=== PATIENT | male | born 1995 | race Caucasian/White ===

== ENCOUNTER 2020-02-12 06:03 | Emergency (ER) | payer MEDICAID, SELFPAY ==
[2020-02-12] VITALS (141 sets, daily range): BP systolic 101–139; BP diastolic 47–91; PULSE 46–114; RESP 10–18; TEMP 36.6; O2SAT 91–100
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
[2020-02-12] MEDS: Naloxone 0.4 MG/ML VIAL 0.8 MG IVP (06:42)
[2020-02-12] MEDS: Lactated Ringers 1,000 ML 1000 ML IV ×2 (06:59→08:07)
[2020-02-12 07:21] LABS: *AMPHETAMINES SCREEN URINE POSITIVE (Negative); *BARBITURATES SCREEN URINE Negative (Negative); *BENZODIAZEPINES SCREEN URINE POSITIVE (Negative); Cannabinoids THC POSITIVE (Negative); Cocaine Screen,Urine POSITIVE (Negative); METHADONE URINE SCREEN POSITIVE (Negative); OPIATES URINE SCREEN Negative (Negative)
[2020-02-12 07:23] LABS: Tricyclic Antidepressants Negative (Negative)
[2020-02-12 07:47] LABS: Abs Immature Grans 0.02 k/cumm (0.0-0.09); Absolute Basophil Count 0.03 k/cumm (0.0-0.2); Absolute Eosinophil Count 0.05 k/cumm (0.0-0.7); Absolute Lymphocyte Count 1.83 k/cumm (1.2-3.4); Absolute Monocyte Count 1.68 k/cumm (0.11-0.7); Absolute Neutrophil Count 9.74 k/cumm (1.2-6.7); Basophils % 0.2; Eosinophils % 0.4; HCT 41.8 % (40.0-50.0); HGB 14.2 g/dL (13.5-17.5); Immature Grans % 0.1 %; Lymphocytes % 13.7; Mean Corpuscular Hemoglobin 31.4 pg (27.0-33.0); Mean Corpuscular Volume 92.5 fL (80-95); Mean Platelet Volume 9.6 fL (8.0-11.0); Monocytes % 12.6; Platelet Count 208 x1000/uL (130-400); RBC 4.52 m/cumm (4.50-6.00); RBC Distribution Width 13.1 % (11.8-14.1); White Blood Cell Count 13.34 k/cumm (4.4-10.8)
[2020-02-12 07:59] LABS: Diff Comment Agrees w/ Instrument; RBC Morphology Normal
[2020-02-12 08:07] LABS: ALT 20 U/L (16-63); AST 27 U/L (15-37); Albumin 3.8 g/dL (3.4-5.0); Alkaline Phosphatase 91 U/L (46-116); Anion Gap 10.9 mmol/L (3-11); BUN 19 mg/dL (7-18); Bilirubin, Total 0.8 mg/dL (0.2-1.0); CO2 27.1 mmol/L (21.0-32.0); CREATININE 1.06 mg/dL (0.70-1.30); Calcium 8.8 mg/dL (8.5-10.1); Chloride 103 mmol/L (98-107); Glucose 86 mg/dL (74-106); Potassium 3.8 mmol/L (3.5-5.1); Sodium 141 mmol/L (136-145); Total Protein 7.4 g/dL (6.4-8.2)
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
[2020-02-12 08:16] LABS: ETHANOL BLOOD < 3.0 mg/dL (<3)
[2020-02-12 08:20] LABS: Salicylate 3.4 mg/dL (2.8-20.0)
[2020-02-12 08:29] LABS: Acetaminophen < 2 ug/mL (10-30)
--- NOTE | 2020-02-12 08:30 | DI.CT_ITS ---
EXAM: CT HEAD WO CLINICAL HISTORY: altered mental status, s/p drug use/fall. TECHNIQUE: Imaging Protocol: Axial computed tomography images with coronal and sagittal reformatted images were created and reviewed COMPARISON: No exams were available for comparison FINDINGS: There is patient motion artifact. Ventricles and Extra axial spaces: Normal in size and morphology for the patient's age. Hemorrhage: None. Cerebral parenchyma: Normal. Midline shift: None. Brainstem/Cerebellum: Normal. Calvarium: Normal. Visualized Paranasal sinuses/Mastoids: This retention cyst or polyp in the left maxillary sinus. Muc osal thickening in the ethmoid air cells and right maxillary sinus. The remaining visualized paranas al sinuses and mastoid air cells are clear. Soft Tissues: Unremarkable. IMPRESSION: No acute intracranial process. RADIATION DOSE DELIVERED: Total DLP DATA REPOSITORY: All CT scans at this facility are submitted to the National Radiology Data Registry (NRDR) Dose Index Registry (DIR) with the [employer] (ACR). RADIATION OPTIMIZATION: All CT scans at this facility use at least one of these dose optimization te chniques: automated exposure control; mA and/or kV adjustment per patient size (includes targeted exa ms where dose is matched to clinical indication); or iterative reconstruction.
--- NOTE | 2020-02-12 08:38 | DI.RAD_ITS ---
EXAM: XR CHEST 1V IN DI DEPT CLINICAL HISTORY: altered mental status, s/p drug use TECHNIQUE: 2D digital imaging was performed. COMPARISON: No exams were available for comparison FINDINGS: MEDIASTINUM: Normal. HEART: Normal. PULMONARY VASCULATURE: Normal. LUNGS: No focal consolidating infiltrates. PLEURAL SPACE: No pleural effusion or pneumothorax. BONE:Within normal limits for the patient's age. OTHER FINDINGS:EKG wires are seen. IMPRESSION: No acute pulmonary findings. DATA REPOSITORY: RADIATION DOSE DELIVERED:
--- NOTE | 2020-02-12 09:00 | RT.EKG_ITS ---
APPROVED REPORT Exam: Resting ECG Patient Location: E HR:58 bpm ECG Measurements Heart Rate 58 AXIS [place] 155 P 57 QRSd 113 QRS 85 QT 459 T 65 QTc 451 <Conclusion> Slow sinus arrhythmia...V-rate 50- 67, mean< 60 ST elev, probable normal early repol pattern...ST elevation, age<55. No acute change from previous EKG 2012.
--- NOTE | 2020-02-12 09:06 | DI.VRAD_ITS ---
PROCEDURE INFORMATION: Exam: CT Head Without Contrast Exam date and time: 02/12/2020 8:42 AM Age: 24 years old Clinical indication: Other: Altered mental status, S/P drug use/fall TECHNIQUE: Imaging protocol: Computed tomography of the head without contrast. COMPARISON: No relevant prior studies available. FINDINGS: Brain: Normal. No hemorrhage. Unremarkable white matter. No mass effect. Ventricles: Normal. No ventriculomegaly. Bones/joints: Unremarkable. No acute fracture. Sinuses: Polyp or retention cyst in the left maxillary sinus. Mucosal thickening in the ethmoid sinuses and right maxillary sinus. Mastoid air cells: Visualized mastoid air cells are well aerated. Soft tissues: Unremarkable. IMPRESSION: No acute intracranial hemorrhage Dictated and Authenticated by: Satya Cat MD. Ordering:GLADIS Troncoso MD
--- NOTE | 2020-02-12 09:56 | DI.VRAD_ITS ---
PROCEDURE INFORMATION: Exam: XR Chest, 1 View Exam date and time: 02/12/2020 9:00 AM Age: 24 years old Clinical indication: Other: AMS, S/P drug use TECHNIQUE: Imaging protocol: XR of the chest Views: 1 view. COMPARISON: No relevant prior studies available. FINDINGS: Tubes, catheters and devices: Overlying EKG wires Lungs: Mild Opacities in the right base may represent atelectasis or pneumonia. Pleural space: Unremarkable. No pleural effusion. No pneumothorax. Heart/Mediastinum: Unremarkable. No cardiomegaly. Bones/joints: Unremarkable. IMPRESSION: Mild Opacities in the right base may represent atelectasis or pneumonia. Dictated and Authenticated by: Satya Cat MD. Ordering:GLADIS Troncoso MD
[2020-02-12] MEDS: Normal Saline 1,000 ML 125 ML IV (10:00)
[2020-02-12] MEDS: Naloxone 0.4 MG/ML VIAL ×2 (14:35→14:40)
--- NOTE | 2020-02-12 16:00 | PDOC.MHCN ---
Date of service: 02/12/20 Time of Service: 16:01 Mental Health Crisis Note Presenting Issue How did you arrive at the ED and why did you come: Client arrived at the ED by ambulance. Client had been in police custody and they were concerned about his behavior and possible overdose. Precipitating Factors Client had a difficult time staying awake during the assessment and often times had to be shaken to wake him up. Client reported that he is very unhappy but does not feel that he would be a harm to himself if he went home. Client reported that all he wanted to do was go home and be with his girl and for all of this to go away. He did report that if he did not go home, and went to penitentiary then he would hang himself. Client reported no HI. Disposition BEHAVIOR: Client was laying in the hospital bed and had a difficult time keeping his head up to speak with this writer editor. Client was cooperative when speaking with this writer editor. EYE CONTACT: Client made minimal eye contact, as he could barely keep his eyes open to speak with this writer editor. MOOD: Client appeared depressed and worried. AFFECT: Clients affect was normal. APPETITE: Client reported that his appetite was crap SLEEP(trouble falling/staying asleep: Client reported that before today, he had been awake for 3 days straight. Plan Client will be released into police custody and will be put on suicide watch. Signature Clinician's Name/Title: Anisa Buckley [facility] Emergency Clinician
--- NOTE | 2020-02-12 16:30 | DI.RAD_ITS ---
EXAM: XR HIP RT COMPLETE AP PELVIS INDICATION: R hip pain, r/o acute fracture. COMPARISON: No exams were available for comparison TECHNIQUE: 2D digital imaging was performed. FINDINGS: No fracture or dislocation is seen. The SI joints and pubic symphysis appear intact. IMPRESSION: Negative pelvis and right hip DATA REPOSITORY: RADIATION DOSE DELIVERED:
--- NOTE | 2020-02-12 17:28 | DI.VRAD_ITS ---
PROCEDURE INFORMATION: Exam: XR Right Hip with Pelvis when Performed Exam date and time: 02/12/2020 4:56 PM Age: 24 years old Clinical indication: Other: RT hip pain, R/O acute FX TECHNIQUE: Imaging protocol: XR Right hip with pelvis when performed. Views: 2 or 3 views. COMPARISON: No relevant prior studies available. FINDINGS: Bones/joints: There is no evidence of acute fracture.There is no evidence of malalignment or dislocation. Soft tissues: Unremarkable. IMPRESSION: There is no evidence of acute fracture.There is no evidence of malalignment or dislocation. Dictated and Authenticated by: Satya Cat MD. Ordering:GLADIS Troncoso MD
--- NOTE | 2020-02-12 18:03 | NUR.NOTE ---
ate a tuna sandwich, drank 3-4 glasses of water.Nursing Note:
== END 2020-02-12 17:55 | disposition home or self-care (01) ==
PROVIDERS: Emergency Medicine; Emergency Provider Physician Assistant
DX: R41.82 Altered mental status, unspecified (principal); F11.10 Opioid abuse, uncomplicated; F13.20 Sedative, hypnotic or anxiolytic dependence, uncomplicated; F14.10 Cocaine abuse, uncomplicated; F15.10 Other stimulant abuse, uncomplicated; R45.851 Suicidal ideations; S70.01XA Contusion of right hip, initial encounter; X58.XXXA Exposure to other specified factors, initial encounter
CPT/HCPCS: 36415; 80053; 80307; 93005; 96361; 96374; 99285; 70450; 71045; 73502; 80320; 80329; 85025; 93010; J2310

== ENCOUNTER 2023-02-14 09:46 | Observation (INO) | payer MEDICAID, SELFPAY ==
[2023-02-14] VITALS (37 sets, daily range): BP systolic 108–133; BP diastolic 36–103; PULSE 51–97; RESP 8–23; TEMP 36.2–36.6; O2SAT 95–100
--- NOTE | 2023-02-14 10:00 | DI.RAD_ITS ---
Exam(s) XR CHEST 2V PA LATERAL EXAM: XR CHEST 2V PA LATERAL CLINICAL HISTORY: short of breath TECHNIQUE: 2D digital imaging was performed of the chest. Four images were obtained. PA and latera l views were obtained. COMPARISON: CR,XR XR CHEST 1V IN DI DEPT from 02/12/2020 FINDINGS: MEDIASTINUM: Normal. HEART: Normal. PULMONARY VASCULATURE: Normal. LUNGS: The lungs are hyperinflated. No focal infiltrates. PLEURAL SPACE: No pleural effusion or pneumothorax. BONE:Within normal limits for the patient's age. OTHER FINDINGS:Normal. IMPRESSION: Hyperinflation of the lungs. No focal infiltrates. DATA REPOSITORY: RADIATION DOSE DELIVERED:
--- NOTE | 2023-02-14 10:00 | RT.EKG_ITS ---
APPROVED REPORT Exam: Resting ECG Reason for Exam: short of breath Patient Location: E HR:55 bpm ECG Measurements Heart Rate 55 AXIS [place] 103 P 33 QRSd 112 QRS 83 QT 451 T 85 QTc 433 Conclusion Sinus bradycardia...rate< [address] intervals. No [address] segment or T wave abnormalities to suggest occluisve ID
--- NOTE | 2023-02-14 10:13 | ED.GENADUL_ITS ---
Discharge Plan Disposition Patient Disposition: Admit to [facility] Discharge Details Chief Complaint: Dizzy/Sync Clinical Impression: Vomiting, Acidosis Primary Care Provider: Unknown,Unknown ED Provider: Aria Nava Home Meds and New Rx's Prescriptions: No Action sertraline [Zoloft] 100 mg Tablet 100 mg PO DAILY Patient Comments: no longer taking hydroxyzine HCl 50 mg Tablet 50 mg PO PRN Patient Comments: no longer taking gabapentin 300 mg Capsule 900 mg PO DAILY sertraline 50 mg Tablet 50 mg PO DAILY buprenorphine-naloxone [Suboxone] 12-3 mg Film 8 film sublingual 2XD citalopram 40 mg tablet 40 mg PO 1XD Medical Decision Making 27yo M with history of substance use disorder, depression, presenting for malaise and vomiting with associated diarrhea. Generally unwell for several days, today with vomiting. No fevers or abdominal pain. Vital signs reassuring on arrival, physical exam with no abdominal tenderness, does have dry mucous membranes. Not overtly septic. Denies other infectious symptoms aside from vomiting. No toxic ingestions. Describes intermittent rapid shallow breathing with numbness and tingling in his hands and feet when his symptoms are the worst, consistent with anxiety/hyperventilation/hypocarbia. Given 1L IVFB and IV zofran. EKG sinus bradycardia with rate in 50's, appropriate intervals, no ST segment or T wave abnormalities to suggest occlusive [place], no sequela of electrolyte abnormalities. Labs ordered and reviewed, CBC reassuring with no leukocytosis or anemia, CMP with mild acidosis with bicarb of 17.6 and gap of 22.4, borderline low blood glucose at 57. Metabolic acidosis in the setting of diarrhea. VBG with ph 7.35, bicarb 18, pC02 32 (likely respiratory compensation but again did describe episodes of intermittent hyperventilation as well). CXR independently reviewed; no pneumonia, agree with radiology read below. On reassessment he reports feeling improved, will to try PO fluids. Repeat VBG ordered as well as additional IVFB. VBG after completion of 1st fluid bolus worsening, ph 7.19 (bicarb essentially unchanged at 17) with CO2 of 43. Patient appears more relaxed on exam, again reports feeling better, able to take some minimal fluids without further vomiting. Does report that he spoke with his roommate and learned that their carbon monoxide detector had recently been removed; CO level checked here and is 2.0, not cause of patient's symptoms today. Suspect likely gastroenteritis though degree of acidosis is unexpected. Despite clinical improvement, acidosis remains concerning and he requires continued IV hydration and repeat bloodwork. Accepted to medicine service and awaiting transfer to the floor. Imaging Data Radiologic Study: Imaging: X-Ray Radiologist's impression: MPRESSION: Hyperinflation of the lungs.? No focal infiltrates.? Lab Data Labs: Laboratory Tests Range/Units 02/14/23 02/14/23 02/14/23 11:00 11:00 11:00 WBC (4.4-10.8) 10^3/uL 6.21 RBC (4.36-5.78) 10^6/uL 4.69 Hgb (13.5-17.5) g/dL 14.7 Hct (40.0-50.0) % 43.2 MCV (80-95) fL 92 MCH (27.0-33.0) pg 31.3 MCHC (32.0-36.0) % 34.0 RDW (11.8-14.1) % 12.7 Plt Count (130-400) 10^3/uL 233 MPV (8.0-11.0) fL 10.1 Immature Gran % 0.3 Neutrophils % 73.4 Lymphocytes % 21.1 Monocytes % 4.3 Eosinophils % 0.3 Basophils % 0.6 Nucleated RBC % (0.0-0.3) % 0.0 Absolute Neutrophils (1.2-6.7) 10^3/uL 4.55 Absolute Lymphocytes (1.2-3.4) 10^3/uL 1.31 Absolute Monocytes (0.1-0.8) 10^3/uL 0.27 Absolute Eosinophils (0.0-0.7) 10^3/uL 0.02 Absolute Basophils (0.0-0.2) 10^3/uL 0.04 VBG pH (7.31-7.41) VBG pCO2 (41-51) mmHg VBG pO2 mmHg VBG HCO3 (23-28) mmol/L VBG Total CO2 (24-29) mmol/L VBG O2 Saturation % VBG Base Excess (-2-3) mmol/L VBG Lactate (0.6-1.4) mmol/L 1.7 H Sodium (136-145) mmol/L 136 Potassium (3.5-5.1) mmol/L 4.0 Chloride (98-107) mmol/L 96 L Carbon Dioxide (21.0-32.0) mmol/L 17.6 L Anion Gap (3-11) mmol/L 22.4 H BUN (7-18) mg/dL 22 H Creatinine (0.70-1.30) mg/dL 1.2 Est GFR (CKD-EPI 2020) (mL/min/1.73m2) 85.00 Glucose (74-106) mg/dL 57 L Calcium (8.5-10.1) mg/dL 9.5 Magnesium (1.8-2.4) mg/dL 1.7 L Total Bilirubin (0.2-1.0) mg/dL 0.9 AST (15-37) U/L 31 ALT (16-63) U/L 20 Alkaline Phosphatase (46-116) U/L 66 Troponin I (<or=60) ng/L < 50 Total Protein (6.4-8.2) g/dL 8.0 Albumin (3.4-5.0) g/dL 4.6 Range/Units 02/14/23 11:00 WBC (4.4-10.8) 10^3/uL RBC (4.36-5.78) 10^6/uL Hgb (13.5-17.5) g/dL Hct (40.0-50.0) % MCV (80-95) fL MCH (27.0-33.0) pg MCHC (32.0-36.0) % RDW (11.8-14.1) % Plt Count (130-400) 10^3/uL MPV (8.0-11.0) fL Immature Gran % Neutrophils % Lymphocytes % Monocytes % Eosinophils % Basophils % Nucleated RBC % (0.0-0.3) % Absolute Neutrophils (1.2-6.7) 10^3/uL Absolute Lymphocytes (1.2-3.4) 10^3/uL Absolute Monocytes (0.1-0.8) 10^3/uL Absolute Eosinophils (0.0-0.7) 10^3/uL Absolute Basophils (0.0-0.2) 10^3/uL VBG pH (7.31-7.41) 7.35 VBG pCO2 (41-51) mmHg 32 L VBG pO2 mmHg 26 VBG HCO3 (23-28) mmol/L 18 L VBG Total CO2 (24-29) mmol/L 16 L VBG O2 Saturation % 51 VBG Base Excess (-2-3) mmol/L -8 L VBG Lactate (0.6-1.4) mmol/L Sodium (136-145) mmol/L Potassium (3.5-5.1) mmol/L Chloride (98-107) mmol/L Carbon Dioxide (21.0-32.0) mmol/L Anion Gap (3-11) mmol/L BUN (7-18) mg/dL Creatinine (0.70-1.30) mg/dL Est GFR (CKD-EPI 2020) (mL/min/1.73m2) Glucose (74-106) mg/dL Calcium (8.5-10.1) mg/dL Magnesium (1.8-2.4) mg/dL Total Bilirubin (0.2-1.0) mg/dL AST (15-37) U/L ALT (16-63) U/L Alkaline Phosphatase (46-116) U/L Troponin I (<or=60) ng/L Total Protein (6.4-8.2) g/dL Albumin (3.4-5.0) g/dL HPI General Mode of arrival: ambulatory . Date/Time Provider Initiated Documentation: 02/14/23 10:03 . Limitations to Documentation: no limitations . Information obtained by: patient . HPI Narrative: 27yo M with history of substance use disorder, depression, presenting for malaise and vomiting. 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 This morning with large volume non-bloody non-bilious emesis. Roommate has also felt unwell but no specific symptoms including no vomiting, diarrhea, or respiratory symptoms. Carbon monoxide detector present and working per patient. Patient feels like his breathing is shallow and today he has intermittently had numbness and tingling of his bilateral hands and feet which resolves without intervention after several minutes. + chills, lightheaded, no fevers or rash. No chest pain, syncope, LE edema, dyspnea on exertion, back pain, headache, or other concerns. Related Data Home Medications Medication Instructions Recorded Confirmed buprenorphine 12 mg-naloxone 3 mg 8 film sublingual 2XD 02/12/20 02/14/23 sublingual film (Suboxone) gabapentin 300 mg capsule 900 mg PO DAILY 02/12/20 02/14/23 hydroxyzine HCl 50 mg tablet 50 mg PO PRN 02/12/20 sertraline 100 mg tablet (Zoloft) 100 mg PO DAILY 02/12/20 02/12/20 sertraline 50 mg tablet 50 mg PO DAILY 02/12/20 02/12/20 citalopram 40 mg tablet 40 mg PO 1XD 02/14/23 02/14/23 Allergies Allergy/AdvReac Type Severity Reaction Status Date / Time Penicillins Allergy Severe hives/swell Unverified 02/14/23 09:56 ing General Stated Complaint: Dizzy/Sync MORRIS: 3 Review of Systems Narrative: See HPI PFSH All Active Problems (Updated 02/14/23 @ 14:55 by Aria Nava MD) Vomiting (Acute) Acidosis (Acute) Hepatitis C virus (Chronic) Accidental overdose of heroin (Acute 05/24/13) Polysubstance dependence including opioid type drug, episodic abuse (Acute 05/24/13) Surgical History No significant past surgical history Social History Smoking/Tobacco Use Status: Current every day Smoking risk assessment performed?: Yes Alcohol Intake: current Drug use: Binges Substance use type: marijuana Details: Pt states that he is on suboxone and that he also smokes weed. Housing: apartment Do you feel safe at home: Yes Do you feel safe in your relationship?: Yes Exam Narrative Exam Narrative: General: Alert, pale, clutching emesis bag Head: Normocephalic, atraumatic Neck: Trachea midline, Neck supple. ENT: Dry mucous membranes. No oropharygeal lesions or exudate. Cardiac: RRR, no murmurs appreciated Resp: No respiratory distress. CTAB. Abd: Soft, non-distended, nontender : No suprapubic tenderness. No CVA tenderness. Extremities: No deformities. No peripheral edema. Neurologic: GCS 15. Moves all extremities freely against gravity Course Vital Signs Vital signs: Vital Signs Temperature 36.6 C 02/14/23 09:49 Pulse 89 02/14/23 09:49 Respiratory Rate 20 02/14/23 09:49 Blood Pressure 111/60 02/14/23 09:49 Pulse Oximetry 95 02/14/23 09:49 Temperature 36.6 C 02/14/23 09:49 Temperature Source Skin 02/14/23 09:49 Pulse 89 02/14/23 09:49 Respiratory Rate 20 02/14/23 09:49 Respiratory Effort Normal 02/14/23 09:52 Blood Pressure 111/60 02/14/23 09:49 Blood Pressure Position Sitting 02/14/23 09:49 Pulse Oximetry 95 02/14/23 09:49 Oxygen Delivery Method Room Air 02/14/23 09:49 Oxygen Flow Rate 0 02/14/23 09:49
[2023-02-14] MEDS: Ondansetron 4 MG/2 ML VIAL IVP (11:12)
[2023-02-14] MEDS: Normal Saline 1,000 ML 1000 ML IV ×2 (11:12→12:47)
[2023-02-14 11:18] LABS: Abs Immature Grans 0.02 10^3/uL (0.0-0.06); Absolute Basophil Count 0.04 10^3/uL (0.0-0.2); Absolute Eosinophil Count 0.02 10^3/uL (0.0-0.7); Absolute Lymphocyte Count 1.31 10^3/uL (1.2-3.4); Absolute Monocyte Count 0.27 10^3/uL (0.1-0.8); Absolute Neutrophil Count 4.55 10^3/uL (1.2-6.7); BE (Venous) -8 mmol/L (-2-3); Basophils % 0.6; Eosinophils % 0.3; HCO3 (Venous) 18 mmol/L (23-28); HCT 43.2 % (40.0-50.0); HGB 14.7 g/dL (13.5-17.5); Immature Grans % 0.3; Lymphocytes % 21.1; MCH 31.3 pg (27.0-33.0); MCV 92 fL (80-95); MPV 10.1 fL (8.0-11.0); Monocytes % 4.3; Neutrophils % 73.4; O2 Sat (Venous) 51 %; Platelet Count 233 10^3/uL (130-400); RBC 4.69 10^6/uL (4.36-5.78); RDW 12.7 % (11.8-14.1); RDW-SD 43.2 fL; TCO2 (Venous) 16 mmol/L (24-29); WBC 6.21 10^3/uL (4.4-10.8); pCO2 (Venous) 32 mmHg (41-51); pH (Venous) 7.35 (7.31-7.41); pO2 (Venous) 26 mmHg
[2023-02-14 11:19] LABS: Lactate 1.7 mmol/L (0.6-1.4)
[2023-02-14 11:42] LABS: ALT 20 U/L (16-63); AST 31 U/L (15-37); Albumin 4.6 g/dL (3.4-5.0); Alkaline Phosphatase 66 U/L (46-116); Anion Gap 22.4 mmol/L (3-11); BUN 22 mg/dL (7-18); Bilirubin, Total 0.9 mg/dL (0.2-1.0); CO2 17.6 mmol/L (21.0-32.0); CREATININE 1.2 mg/dL (0.70-1.30); Calcium 9.5 mg/dL (8.5-10.1); Chloride 96 mmol/L (98-107); Glucose 57 mg/dL (74-106); Magnesium 1.7 mg/dL (1.8-2.4); Sodium 136 mmol/L (136-145); Troponin I < 50 ng/L (<or=60)
[2023-02-14 13:05] LABS: BE (Venous) -12 mmol/L (-2-3); HCO3 (Venous) 17 mmol/L (23-28); O2 Sat (Venous) 72 %; TCO2 (Venous) 15 mmol/L (24-29); pCO2 (Venous) 43 mmHg (41-51); pO2 (Venous) 43 mmHg
[2023-02-14 13:06] LABS: pH (Venous) 7.19 (7.31-7.41)
--- NOTE | 2023-02-14 15:01 | HPE_ITS ---
Date of service: 02/14/23 Time of Service: 15:01 Assessment and Plan Assessment and plan (1) Gastroenteritis: Status: Acute Assessment and plan: referred to observation status for hydration and symptom management. continue IV fluids, antiemetics as needed. discussed with DR Rivera. History of Present Illness History of Present Illness Chief Complaint: malaise, nausea vomiting diarrhea Narrative: This is a 27 year old male with history of substance use disorder, depression, presenting for malaise and vomiting with associated diarrhea who presented to the ED for evaluation. His work up shows a metabolic acidosis. He was given IV fluids and clinically feeling better. His VBG was repeated and now pH noted to be 7.19 so ED requested observation admission. hospital accepted. ? Review of Systems All systems reviewed & are unremarkable except as noted in HPI and below PFSH All Active Problems (Updated 02/14/23 @ 15:05 by Kari Au NP) Gastroenteritis (Acute) Vomiting (Acute) Acidosis (Acute) Hepatitis C virus (Chronic) Accidental overdose of heroin (Acute 05/24/13) Polysubstance dependence including opioid type drug, episodic abuse (Acute 1 07/24/12) Surgical History No significant past surgical history Social History Smoking/Tobacco Use Status: Current every day Smoking risk assessment performed?: Yes Alcohol Intake: current Drug use: Binges Substance use type: marijuana Details: Pt states that he is on suboxone and that he also smokes weed. Housing: apartment Do you feel safe at home: Yes Do you feel safe in your relationship?: Yes Meds Allergies and Home Medications Allergies Allergy/AdvReac Type Severity Reaction Status Date / Time Penicillins Allergy Severe hives/swell Unverified 02/14/23 09:56 ing Home Medications Medication Instructions Recorded Confirmed Type gabapentin 300 mg capsule 300 mg PO TID PRN PRN 02/12/20 02/14/23 History hydroxyzine HCl 50 mg tablet 50 mg PO PRN 02/12/20 History buprenorphine 8 mg-naloxone 2 mg 2 film sublingual DAILY 02/14/23 02/14/23 History sublingual film (Suboxone) citalopram 40 mg tablet 40 mg PO 1XD 02/14/23 02/14/23 History Exam Const General: cooperative, comfortable and no acute distress Nutritional Appearance: thin Orientation: alert, awake and oriented x3 HENMT Head: normal to inspection, normocephalic and atraumatic Mouth: moist mucous membranes abnormal (slightly dry) Resp Effort & Inspection: normal respiratory effort Cardio Rate: regular rate Rhythm: regular rhythm GI Inspection: scaphoid Palpation: soft and nontender Skin General skin exam: no rashes or lesions noted Neuro General: patient alert, patient awake and patient oriented x3 Extrem General: normal to inspection and full ROM Results Labs 02/14/23 11:00 02/14/23 11:00 Labs: Laboratory Results - last 24 hr 02/14/23 02/14/23 02/14/23 11:00 11:00 11:00 WBC 6.21 RBC 4.69 Hgb 14.7 Hct 43.2 MCV 92 MCH 31.3 MCHC 34.0 RDW 12.7 Plt Count 233 MPV 10.1 Immature Gran % 0.3 Neutrophils % 73.4 Lymphocytes % 21.1 Monocytes % 4.3 Eosinophils % 0.3 Basophils % 0.6 Nucleated RBC % 0.0 Absolute Neutrophils 4.55 Absolute Lymphocytes 1.31 Absolute Monocytes 0.27 Absolute Eosinophils 0.02 Absolute Basophils 0.04 VBG pH VBG pCO2 VBG pO2 VBG HCO3 VBG Total CO2 VBG O2 Saturation VBG Base Excess VBG Lactate 1.7 H Sodium 136 Potassium 4.0 Chloride 96 L Carbon Dioxide 17.6 L Anion Gap 22.4 H BUN 22 H Creatinine 1.2 Est GFR (CKD-EPI 2020) 85.00 Glucose 57 L Calcium 9.5 Magnesium 1.7 L Total Bilirubin 0.9 AST 31 ALT 20 Alkaline Phosphatase 66 Troponin I < 50 Total Protein 8.0 Albumin 4.6 02/14/23 02/14/23 11:00 12:59 WBC RBC Hgb Hct MCV MCH MCHC RDW Plt Count MPV Immature Gran % Neutrophils % Lymphocytes % Monocytes % Eosinophils % Basophils % Nucleated RBC % Absolute Neutrophils Absolute Lymphocytes Absolute Monocytes Absolute Eosinophils Absolute Basophils VBG pH 7.35 7.19 L* VBG pCO2 32 L 43 VBG pO2 26 43 VBG HCO3 18 L 17 L VBG Total CO2 16 L 15 L VBG O2 Saturation 51 72 VBG Base Excess -8 L -12 L VBG Lactate Sodium Potassium Chloride Carbon Dioxide Anion Gap BUN Creatinine Est GFR (CKD-EPI 2020) Glucose Calcium Magnesium Total Bilirubin AST ALT Alkaline Phosphatase Troponin I Total Protein Albumin Last Vital Signs Temp 36.6 C 02/14/23 09:49 Pulse 58 L 02/14/23 14:31 Resp 10 L 02/14/23 14:31 BP 108/50 L 02/14/23 14:31 Pulse Ox 98 02/14/23 14:31 Time Spent Time spent with Patient: <40 minutes Time was spent: preparing to see the patient(eg.review tests), ordering medications,tests, procedures and counseling the patient
[2023-02-14] MEDS: Acetaminophen 500 MG TAB 1000 MG PO (15:50)
[2023-02-14 17:15] LABS: BE (Venous) -4 mmol/L (-2-3); HCO3 (Venous) 22 mmol/L (23-28); O2 Sat (Venous) 90 %; TCO2 (Venous) 19 mmol/L (24-29); pCO2 (Venous) 40 mmHg (41-51); pH (Venous) 7.34 (7.31-7.41); pO2 (Venous) 57 mmHg
--- NOTE | 2023-02-14 17:55 | W.PM.DS.N ---
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 He is also experiencing some nausea vomiting and diarrhea now so presents to the emergency department he received 2 L of normal saline in the emergency department and stated he was feeling markedly improved. Regardless if VBG was rechecked in the emergency department and found to have a pH now of 7.1 which previously was 3.4. Vital signs were stable he was tolerating oral fluid but emergency department not comfortable with discharge so requested and admission for further monitoring and fluids. Patient arrived to the floor stating he felt like trying a regular diet. His diet was advanced which she tolerated well. Hemodynamically he has been stable stating his symptoms have resolved and requesting discharge , I do feel this is reasonable and have discharged him with no new medications resume previous medications as directed advance diet drink at least 6 to 8 glasses to stay well-hydrated discharge discussed with Dr. Rivera Home Meds and New Rx's Prescriptions: Continued hydroxyzine HCl 50 mg Tablet 50 mg PO PRN Patient Comments: no longer taking gabapentin 300 mg Capsule 300 mg PO TID PRN PRN citalopram 40 mg tablet 40 mg PO 1XD buprenorphine-naloxone [Suboxone] 8-2 mg film 2 film sublingual DAILY Patient Comments: PLACE 1 FILM UNDER THE TONGUE ONCE DAILY TWO TIMES A DAY Discharge Instructions Instructions: Gastroenteritis (DC) Additional Instructions: Advance diet clear liquids as tolerated Drink at least 6 to 8 glasses of fluid daily to stay well-hydrated Stand Alone Forms: Nursing Discharge Form Referrals: Unknown,Unknown [Primary Care Provider] - Activity:: Activity as Tolerated Equipment/Supplies:: No Equipment Needed Diet:: As Tolerated Discharge Orders Discharge Orders: Discharge Order (Routine); Ordered 02/14/23 Ordered By: Kari Au Discharge Data Discharge Date/Time-TO BE ENTERED AT DEPARTURE: 02/14/23 18:12 DS: Summary Time Spent with Patient providing and/or coordinating discharge services: Less than 30 minutes Status at Discharge Functional status at discharge: independent ambulation Overall status at discharge: patient is back to baseline Mental Status: mental status grossly normal Speech and Movement: speech and movement normal Mood: congruent mood Affect: normal affect Exam Const General: cooperative, comfortable and no acute distress Nutritional Appearance: thin Orientation: alert, awake and oriented x3 HENMT Head: normal to inspection, normocephalic and atraumatic Mouth: moist mucous membranes abnormal (slightly dry) Resp Effort & Inspection: normal respiratory effort Cardio Rate: regular rate Rhythm: regular rhythm GI Inspection: scaphoid Palpation: soft and nontender Skin General skin exam: no rashes or lesions noted Neuro General: patient alert, patient awake and patient oriented x3 Extrem General: normal to inspection and full ROM Psych Mental Status: mental status grossly normal Speech and Movement: speech and movement normal Mood: congruent mood Affect: normal affect DS: Data Vitals/I&O Vitals and I&O: Vital Signs Temperature 36.2 C L 02/14/23 15:24 Temperature Source Tympanic 02/14/23 15:24 Pulse 69 02/14/23 15:24 Pulse Rhythm Regular 02/14/23 15:25 Pulse 75 02/14/23 15:10 Respiratory Rate 12 02/14/23 15:10 Respiratory Effort Normal, Non-Labored 02/14/23 15:25 Respiratory Depth Normal 02/14/23 15:25 Respiratory Pattern Normal 02/14/23 15:25 Blood Pressure 133/67 02/14/23 15:24 Blood Pressure Mean 59 02/14/23 14:31 Blood Pressure Position Sitting 02/14/23 09:49 Pulse Oximetry 100 02/14/23 15:25 Oxygen Delivery Method Room Air 02/14/23 15:25 Oxygen Flow Rate 0 02/14/23 15:25 Pain Level 1 02/14/23 15:50 Intake & Output 02/13/23 02/14/23 02/14/23 23:59 11:59 23:59 Intake Total 2009 Balance 2009 Weight 58.967 kg Intake: IV 2009 Data Completed and Pending Labs on day of discharge: Labs from last 24 hours 02/14/23 02/14/23 02/14/23 17:07 12:59 11:00 WBC RBC Hgb Hct MCV MCH MCHC RDW Plt Count MPV Immature Gran % Neutrophils % Lymphocytes % Monocytes % Eosinophils % Basophils % Nucleated RBC % Absolute Neutrophils Absolute Lymphocytes Absolute Monocytes Absolute Eosinophils Absolute Basophils VBG pH 7.34 7.19 L* 7.35 VBG pCO2 40 L 43 32 L VBG pO2 57 43 26 VBG HCO3 22 L 17 L 18 L VBG Total CO2 19 L 15 L 16 L VBG O2 Saturation 90 72 51 VBG Base Excess -4 L -12 L -8 L VBG Lactate Sodium Potassium Chloride Carbon Dioxide Anion Gap BUN Creatinine Est GFR (CKD-EPI 2020) Glucose Calcium Magnesium Total Bilirubin AST ALT Alkaline Phosphatase Troponin I Total Protein Albumin 02/14/23 02/14/23 02/14/23 11:00 11:00 11:00 WBC 6.21 RBC 4.69 Hgb 14.7 Hct 43.2 MCV 92 MCH 31.3 MCHC 34.0 RDW 12.7 Plt Count 233 MPV 10.1 Immature Gran % 0.3 Neutrophils % 73.4 Lymphocytes % 21.1 Monocytes % 4.3 Eosinophils % 0.3 Basophils % 0.6 Nucleated RBC % 0.0 Absolute Neutrophils 4.55 Absolute Lymphocytes 1.31 Absolute Monocytes 0.27 Absolute Eosinophils 0.02 Absolute Basophils 0.04 VBG pH VBG pCO2 VBG pO2 VBG HCO3 VBG Total CO2 VBG O2 Saturation VBG Base Excess VBG Lactate 1.7 H Sodium 136 Potassium 4.0 Chloride 96 L Carbon Dioxide 17.6 L Anion Gap 22.4 H BUN 22 H Creatinine 1.2 Est GFR (CKD-EPI 2020) 85.00 Glucose 57 L Calcium 9.5 Magnesium 1.7 L Total Bilirubin 0.9 AST 31 ALT 20 Alkaline Phosphatase 66 Troponin I < 50 Total Protein 8.0 Albumin 4.6 PFSH All Active Problems (Updated 02/14/23 @ 15:05 by Kari Au NP) Gastroenteritis (Acute) Vomiting (Acute) Acidosis (Acute) Hepatitis C virus (Chronic) Accidental overdose of heroin (Acute 05/24/13) Polysubstance dependence including opioid type drug, episodic abuse (Acute 05/24/13) Surgical History No significant past surgical history Social History Smoking/Tobacco Use Status: Current every day Smoking risk assessment performed?: Yes Alcohol Intake: current Drug use: Binges Substance use type: marijuana Details: Pt states that he is on suboxone and that he also smokes weed. Housing: apartment Do you feel safe at home: Yes Do you feel safe in your relationship?: Yes Time Spent with Patient Time Spent with Patient: <45 minutes Time was spent: obtaining and/or reviewing separately otained hiistory, ordering medications,tests, procedures, indepentently interpreting results and counseling the patient
== END 2023-02-14 18:12 | disposition home or self-care (01) ==
LOC: ER 14:55 → MS 15:19
PROVIDERS: Nurse Practitioner Acute Care; Admitting Provider Family Medicine; Emergency Provider Student in an Organized Health Care Education/Training Program; Visit Provider Family Medicine
DX: K52.9 Noninfective gastroenteritis and colitis, unspecified (principal); R11.2 Nausea with vomiting, unspecified; F32.A Depression, unspecified; F11.20 Opioid dependence, uncomplicated; B18.2 Chronic viral hepatitis C; F12.90 Cannabis use, unspecified, uncomplicated; Z79.899 Other long term (current) drug therapy; E87.20 Acidosis, unspecified; F19.20 Other psychoactive substance dependence, uncomplicated; F17.210 Nicotine dependence, cigarettes, uncomplicated
CPT/HCPCS: 36415; 80053; 82805; 93005; 96360; 99285; 71046; 83605; 83735; 84484; 85025; 93010; 99222; G0378; J2405

== ENCOUNTER 2023-07-17 18:54 | Emergency (ER) | payer MEDICAID, SELFPAY ==
[2023-07-17 18:57] VITALS: BP 151/96; PULSE 123; RESP 16; TEMP 36.5; O2SAT 98
--- NOTE | 2023-07-17 19:47 | ED.GENADUL_ITS ---
Discharge Plan Disposition Patient Disposition: Eloped Discharge Details Chief Complaint: Nausea/Vomit/Diar Clinical Impression: Gastroenteritis Primary Care Provider: Janine Jaimes ED Provider: Kari Au Home Meds and New Rx's Prescriptions: No Action hydroxyzine HCl 50 mg Tablet 50 mg PO PRN Patient Comments: no longer taking gabapentin 300 mg Capsule 300 mg PO TID PRN PRN citalopram 40 mg tablet 40 mg PO 1XD buprenorphine-naloxone [Suboxone] 8-2 mg film 2 film sublingual DAILY Patient Comments: PLACE 1 FILM UNDER THE TONGUE ONCE DAILY TWO TIMES A DAY albuterol sulfate [Ventolin HFA] 90 mcg/actuation HFA aerosol inhaler INHALATION Patient Comments: INHALE TWO PUFFS BY MOUTH EVERY 6 HOURS NEEDED Medical Decision Making Vital signs noted and patient with pulse in the 120s blood pressure is okay at 151/96 I think it is reasonable to establish an IV give him IV Compazine check routine labs to evaluate for electrolyte disturbance acute kidney injury, and CBC. It is later reported to me that patient has not been located when went to retrieve him to bring him back to an emergency department bed. Chart will be closed as eloped HPI General Mode of arrival: ambulatory . Date/Time Provider Initiated Documentation: 07/17/23 19:17 . Limitations to Documentation: no limitations . Information obtained by: patient . HPI Narrative: Patient presents for evaluation of nausea abdominal cramping and dizziness that has worsened today. He reports he had COVID a week and a half ago. No chest pain or shortness of breath reported he is evaluated in triage and noted to be tachycardic. Related Data Home Medications Medication Instructions Recorded Confirmed gabapentin 300 mg capsule 300 mg PO TID PRN PRN 02/12/20 07/17/23 hydroxyzine HCl 50 mg tablet 50 mg PO PRN 02/12/20 buprenorphine 8 mg-naloxone 2 mg 2 film sublingual DAILY 02/14/23 07/17/23 sublingual film (Suboxone) citalopram 40 mg tablet 40 mg PO 1XD 02/14/23 07/17/23 albuterol sulfate 90 mcg/actuation inhalation 07/17/23 aerosol inhaler (Ventolin HFA) Allergies Allergy/AdvReac Type Severity Reaction Status Date / Time Penicillins Allergy Severe hives/swell Unverified 07/17/23 19:02 ing General Stated Complaint: Nausea/Vomit/Diar MORRIS: 3 Review of Systems All systems reviewed & are unremarkable except as noted in HPI and below PFSH All Active Problems (Updated 07/17/23 @ 19:51 by Kari Au NP) Gastroenteritis (Acute) Vomiting (Acute) Acidosis (Acute) Hepatitis C virus (Chronic) Accidental overdose of heroin (Acute 05/24/13) Polysubstance dependence including opioid type drug, episodic abuse (Acute 05/24/13) Surgical History No significant past surgical history Social History Smoking/Tobacco Use Status: Current every day Smoking risk assessment performed?: Yes Alcohol Intake: current Drug use: Binges Substance use type: marijuana Details: Pt states that he is on suboxone and that he also smokes weed. Housing: apartment Do you feel safe at home: Yes Do you feel safe in your relationship?: Yes Exam Narrative Exam Narrative: Very thin appearing male of stated age no acute distress skin is pale warm and dry head is atraumatic he is sitting in triage chair in no acute distress neck is supple with no JVD. His respirations are even and unlabored he moves all extremities there is no peripheral edema Course Vital Signs Vital signs: Vital Signs Temperature 36.5 C 07/17/23 18:57 Pulse 123 H 07/17/23 18:57 Respiratory Rate 16 07/17/23 18:57 Blood Pressure 151/96 H 07/17/23 18:57 Pulse Oximetry 98 07/17/23 18:57 Temperature 36.5 C 07/17/23 18:57 Temperature Source Temporal Artery Scan 07/17/23 18:57 Pulse 123 H 07/17/23 18:57 Respiratory Rate 16 07/17/23 18:57 Blood Pressure 151/96 H 07/17/23 18:57 Blood Pressure Position Sitting 07/17/23 18:57 Pulse Oximetry 98 07/17/23 18:57 Oxygen Delivery Method Room Air 07/17/23 18:57 Oxygen Flow Rate 0 07/17/23 18:57 Pain Level 3 07/17/23 18:57
--- NOTE | 2023-07-17 23:09 | NUR.NOTE ---
could not find him in the waiting room. had left.Nursing Note:
== END 2023-07-17 19:31 | disposition left against medical advice (07) ==
PROVIDERS: Emergency Provider Nurse Practitioner Acute Care; PCP Physical Therapist Orthopedic
DX: Z53.21 Procedure and treatment not carried out due to patient leaving prior to being seen by health care provider (principal)
CPT/HCPCS: 80048; 83735; 85025

== ENCOUNTER 2024-04-25 11:49 | Emergency (ER) | payer MEDICAID, SELFPAY ==
[2024-04-25 11:50] VITALS: BP 168/76; PULSE 148; RESP 15; TEMP 36.7; O2SAT 100
--- NOTE | 2024-04-25 12:01 | ED.GENADUL_ITS ---
Discharge Plan Disposition Patient Disposition: Against Medical Advice Condition: Serious Discharge Details Chief Complaint: OD/Poison Clinical Impression: Substance abuse Primary Care Provider: Janine Jaimes ED Provider: Mynor Salcedo Home Meds and New Rx's Prescriptions: No Action hydroxyzine HCl 50 mg Tablet 50 mg PO PRN Patient Comments: no longer taking gabapentin 300 mg Capsule 300 mg PO TID PRN PRN citalopram 40 mg tablet 40 mg PO 1XD buprenorphine-naloxone [Suboxone] 8-2 mg film 2 film sublingual DAILY Patient Comments: PLACE 1 FILM UNDER THE TONGUE ONCE DAILY TWO TIMES A DAY albuterol sulfate [Ventolin HFA] 90 mcg/actuation HFA aerosol inhaler INHALATION Patient Comments: INHALE TWO PUFFS BY MOUTH EVERY 6 HOURS NEEDED HPI General Mode of arrival: ambulatory . Date/Time Provider Initiated Documentation: 04/25/24 11:51 . Limitations to Documentation: no limitations . Information obtained by: patient . History of Present Illness 28 year old M presents to the emergency department with the chief complaint of ?seizure, Patient started experiencing this minute(s) (30) and it has been now resolved. No relieving factors improve symptom(s), No exacerbating factors reported . Patient notes denies chest pain, fever/chills and shortness of breath. Patient did receive the following treatments prior to arrival, none Related Data Home Medications ?Medication ?Instructions ?Recorded ?Confirmed gabapentin 300 mg capsule 300 mg PO TID PRN PRN 02/12/20 07/17/23 hydroxyzine HCl 50 mg tablet 50 mg PO PRN 02/12/20 buprenorphine 8 mg-naloxone 2 mg 2 film sublingual DAILY 02/14/23 07/17/23 sublingual film (Suboxone) citalopram 40 mg tablet 40 mg PO 1XD 02/14/23 07/17/23 albuterol sulfate 90 mcg/actuation inhalation 07/17/23 aerosol inhaler (Ventolin HFA) Allergies Allergy/AdvReac Type Severity Reaction Status Date / Time Penicillins Allergy Severe hives/swell Unverified 07/17/23 19:02 ing General Stated Complaint: OD/Poison MORRIS: 2 Review of Systems All systems reviewed & are unremarkable except as noted in HPI and below Constitutional Constitutional: Denies chills, Denies fever(s) and Denies weakness Cardiovascular Cardiovascular: Denies chest pain and Denies dyspnea Respiratory Respiratory: Denies cough and Denies dyspnea Gastrointestinal Gastrointestinal: Denies abdominal pain, Denies nausea and Denies vomiting Integumentary/Breasts Skin/Breast: Denies rash Neurologic Neurologic: Reports abnormal movements and Denies weakness Psychiatric Psychiatric: Denies depression Exam Const General: no acute distress Orientation: alert HENMD Head: normal to inspection Ears: external ears normal General nose exam: external nose normal Mouth: moist mucous membranes Eyes General: appearance normal, both eyes and all related structures Neck Neck: normal visual inspection Resp Effort & Inspection: normal respiratory effort and able to speak in complete sentences Cardio Rate: regular rate Skin General skin exam: no rashes or lesions noted Neuro General: patient alert and patient oriented x3 Cognition: normal cognition Speech: speech normal Gait: normal gait Extrem General: normal to inspection Psych Mental Status: mental status grossly normal Course Vital Signs Vital signs: Vital Signs Temperature 36.7 C 04/25/24 11:50 Pulse 148 H 04/25/24 11:50 Respiratory Rate 15 04/25/24 11:50 Blood Pressure 168/76 H 04/25/24 11:50 Pulse Oximetry 100 04/25/24 11:50 Temperature 36.7 C 04/25/24 11:50 Pulse 148 H 04/25/24 11:50 Respiratory Rate 15 04/25/24 11:50 Blood Pressure 168/76 H 04/25/24 11:50 Blood Pressure Position Sitting 04/25/24 11:50 Pulse Oximetry 100 04/25/24 11:50 Oxygen Delivery Method Room Air 04/25/24 11:50 Oxygen Flow Rate 0 04/25/24 11:50 Pain Level 0 04/25/24 11:50 Medical Decision Making 28-year-old male with a history of substance abuse who comes in after he took 5 gabapentin earlier to feel good and girlfriend and noticed that he was having movement of his arms, she was concerned for seizure so brought him here. He really had loss of consciousness. He says he feels fine now. He had no chest pain difficulty breathing, no headaches, he denies any other drug use. He has no focal deficits and a normal gait. Unclear etiology if this is seizure or not, patient is adamant he did not do this to try and harm himself and the girlfriend states that he has not made any statements about wanting to hurt himself. Will obtain CBC CMP and tox screen and give a dose of Ativan and Keppra in case this was a seizure. The after I left the room patient decided he did not want to stay. He has decision-making capacity and is currently clinically sober. I have recommended that he stay for further workup and monitoring. I advised that he could potentially or become permanently disabled if he does have more seizures. He is willing to accept these risks and is leaving AGAINST MEDICAL ADVICE. I strongly recommended he follow-up with his PCP and also advised he can return anytime if he changes his mind. He left before discharge instructions could be printed. Differential Diagnosis Differential Diagnosis: Substance abuse, seizure, psychogenic nonepileptic movements Quality:SDOH Health Related Social Needs: No Data to Display PFSH All Active Problems (Updated 04/25/24 @ 12:11 by Mnyor Salcedo MD) Substance abuse (Acute) Gastroenteritis (Acute) Vomiting (Acute) Acidosis (Acute) Hepatitis C virus (Chronic) Accidental overdose of heroin (Acute 05/24/13) Polysubstance dependence including opioid type drug, episodic abuse (Acute 05/24/13) Surgical History No significant past surgical history Social History Smoking/Tobacco Use Status: Current every day Smoking risk assessment performed?: Yes Alcohol Intake: current Drug use: Binges Substance use type: marijuana Details: Pt states that he is on suboxone and that he also smokes weed. Housing: apartment Do you feel safe at home: Yes Do you feel safe in your relationship?: Yes
--- NOTE | 2024-04-26 07:18 | NUR.NOTE ---
Access chart to reconcile EKG orders to EKG's in [facility]. EKG order cancelled no EKG in [facility]. Nursing Note:
== END 2024-04-25 12:07 | disposition left against medical advice (07) ==
LOC: ER 12:24
PROVIDERS: Emergency Provider Emergency Medicine; PCP Physical Therapist Orthopedic
DX: F19.10 Other psychoactive substance abuse, uncomplicated (principal); Z53.29 Procedure and treatment not carried out because of patient's decision for other reasons
CPT/HCPCS: 80053; 82805; 99281; 80320; 80329; 82140; 82248; 83735; 84443; 85025; 99283